=== PATIENT | male | born 1985 | race Caucasian/White ===

== ENCOUNTER 2018-08-17 09:33 | Emergency (ER) | payer MEDICAID ==
[~2018-08-17] VITALS: Wt 90.9 kg
[2018-08-17 10:09] VITALS: BP 143/81; PULSE 81; RESP 20
[2018-08-17] MEDS ORDERED: KETOROLAC 60 MG INJ IM STA (10:28)
[2018-08-17] MEDS ORDERED: OXYCODONE/ACETAMINOPHEN (5/325) TAB PO ONE (10:30)
[2018-08-17] MEDS ORDERED: HYDR-4011 PO (11:29)
[2018-08-17] MEDS ORDERED: IBUP800T48 PO (11:29)
--- NOTE | 2018-08-17 13:16 | ERD ---
ER Documentation Chief Complaint Chief Complaint r. foot pain x1 wk, denies trauma HPI 33-year-old male presents with complaint of right foot pain for the past week. Patient denies any trauma. Patient states the pain is getting worse and worse until last night in which the parents were acute kept him up at night. Patient denies any treatments. Patient states the pain feels like [id number] in his foot. Patient denies any fevers, chills. ROS All systems reviewed and are negative except as per history of present illness. Medications Home Meds Active Scripts Hydrocodone/Acetaminophen ([place] 5-325 Tablet) 1 Each Tablet, 1 TAB PO Q6H PRN for PAIN, #10 TAB Prov:SANANAVID GISPONEL 08/17/18 Ibuprofen* (Motrin*) 800 Mg Tab, 800 MG PO Q6, #30 TAB Prov:CARINA MAYA 08/17/18 Allergies Allergies: Coded Allergies: No Known Allergy (Unverified , 08/17/18) PMhx/Soc Medical and Surgical Hx: pt denies Medical Hx, pt denies Surgical Hx Hx Alcohol Use: No Hx Substance Use: No Hx Tobacco Use: No Smoking Status: Never smoker FmHx Family History: No diabetes, No coronary disease, No other Physical Exam Vitals Vital Signs Date Temp Pulse Resp B/P (MAP) Pulse Ox O2 O2 Flow FiO2 Time Delivery Rate 08/17/18 98.7 81 20 143/81 98 10:09 (101) Physical Exam Const: No acute distress Head: Atraumatic Eyes: Normal Conjunctiva ENT: Normal External Ears, Nose and Mouth. Neck: Full range of motion. No meningismus. Resp: Clear to auscultation bilaterally Cardio: Regular rate and rhythm, no murmurs Abd: Soft, non tender, non distended. Normal bowel sounds Skin: No petechiae or rashes Back: No midline or flank tenderness Ext: No cyanosis, or edema Neur: Awake and alert Psych: Normal Mood and Affect Left foot: Tenderness to palpation over the dorsal aspect of left foot without any noted bony deformity. There is some edema but no erythema noted. Results 24 hrs Laboratory Tests Test 08/17/18 10:50 Uric Acid 7.3 mg/dl Current Medications Medications Dose Sig/Kayce Start Time Status Last (Trade) Ordered Route PRN Stop Time Admin Dose Reason Admin Ketorolac 60 mg ONCE STAT 08/17/18 DC 08/17/18 Tromethamine IM 10:28 08/17/18 10:44 (Toradol) 10:31 Oxycodone/ 1 tab ONCE ONCE 08/17/18 DC 08/17/18 Acetaminophen PO 10:30 08/17/18 10:44 (Percocet 10:31 (5/ 325)) Procedures/MDM MDM: Patient's presentation was suspicious for gout so I ordered a uric acid. Uric acid was elevated confirming my suspicion for gout. Patient will be treated with ibuprofen as well as [place] for breakthrough pain. I prefer not to treat with colchicine to do that its very side effects. Patient was advised to follow-up the primary care for possible prescription of allopurinol. I have low suspicion for neurovascular compromise, compartment syndrome, fracture, osteomyelitis, septic joint, DVT, or other emergent condition. At this time, patient is stable for discharge and outpatient management. I have instructed the patient to follow-up with his/her primary care physician in 1-2 days. I have discussed with the patient the possibility of needing to see a specialist for further workup and imaging studies if symptoms persist. I have instructed the patient to promptly return to the ER for any new or worsening symptoms including but not limited to increased pain, fever, nausea, vomiting, weakness or LOC. The patient and/or family expressed understanding of and agreement with this plan. All questions were answered. Home care instructions were provided. DISCLAIMER: Inadvertent spelling and grammatical errors are likely due to EHR/dictation software use and do not reflect on the overall quality of patient care. Also, please note that the electronic time recorded on this note does not necessarily reflect the actual time of the patient encounter. Departure Diagnosis: Primary Impression: Gout Condition: Stable Patient Instructions: What Is Gout?, Treating Gout Attacks, Gout Diet Referrals: COMM[facility] YOU HAVE RECEIVED A MEDICAL SCREENING EXAM AND THE RESULTS INDICATE THAT YOU DO NOT HAVE A CONDITION THAT REQUIRES URGENT TREATMENT IN THE EMERGENCY DEPARTMENT. FURTHER EVALUATION AND TREATMENT OF YOUR CONDITION CAN WAIT UNTIL YOU ARE SEEN IN YOUR DOCTORS OFFICE WITHIN THE NEXT 1-2 DAYS. IT IS YOUR RESPONSIBILITY TO MAKE AN APPOINTMENT FOR FOLOW-UP CARE. IF YOU HAVE A PRIMARY DOCTOR --you should call your primary doctor and schedule an appointment IF YOU DO NOT HAVE A PRIMARY DOCTOR YOU CAN CALL OUR PHYSICIAN REFERRAL HOTLINE AT IF YOU CAN NOT AFFORD TO SEE A PHYSICIAN YOU CAN CHOSE FROM THE FOLLOWING [facility] [address] [facility] [phone] [id number] [facility]. [facility] [address] [facility] [address] [facility]. [facility] [address]. [facility] [address] Additional Instructions: FOLLOW UP WITH YOUR PRIMARY CARE PHYSICIAN TOMORROW.Return to this facility if you are not improving as expected. CARINA MAYA Aug 17, 2018 12:53
== END 2018-08-17 11:38 | disposition home or self-care (01) ==
LOC: FTE 09:33
DX: M10.9 Gout, unspecified (principal)
CPT/HCPCS: 73610; 84560; 96372; J1885; Z7502; Z7610

== ENCOUNTER 2018-10-03 20:48 | Emergency (ER) | payer MEDICAID ==
[~2018-10-03] VITALS: Ht 167.6 cm; Wt 112.4 kg
[~2018-10-03 20:48] MED LIST: FAMO-96 PO; HYDR-4011 PO; IBUP-1542 PO; IBUP800T48 PO
[2018-10-03 20:56] VITALS: Ht 167.6 cm; Wt 112.4 kg
[2018-10-03] MEDS ORDERED: LIDOCAINE/MYLANTA 40 ML BTL PO ONE (23:00)
[2018-10-03] MEDS ORDERED: KETOROLAC 30 MG INJ IM STA (23:00)
[2018-10-03 23:38] VITALS: BP 137/84; PULSE 84; RESP 18
== END 2018-10-03 23:38 | disposition home or self-care (01) ==
LOC: FTE 20:48
DX: M94.0 Chondrocostal junction syndrome [Tietze] (principal); E11.9 Type 2 diabetes mellitus without complications
CPT/HCPCS: 93005; 96372; J1885; Z7502; Z7610